=== PATIENT | female | born 1965 | race Caucasian/White ===

== ENCOUNTER → 2017-01-18 | Outpatient (CLI) | payer OTHER ==
[~2017-01-18] MED LIST: AZAT50TA17; BSP15; CEPH500C PO; LABE300T; PNT250; POTA10CA28; REVIEWED; SPIR25TA; [UNRECOGNIZED DRUG - REMARK]; [UNRECOGNIZED DRUG - REMARK]
[2017-01-18 11:22] LABS: BLOOD UREA NITROGEN 17 mg/dl (7-18); BUN/CREATININE RATIO 15.5 (10-20); CALCIUM 9.4 mg/dl (8.5-10.1); CARBON DIOXIDE 26 mmol/L (21-32); CHLORIDE 102 mmol/L (98-107); CHOLESTEROL 136 mg/dl (0-200); GLUCOSE 117 mg/dl (70-99); POTASSIUM 3.5 mmol/L (3.5-5.1); SODIUM 138 mmol/L (136-145)
[2017-01-18 11:29] LABS: ESTIMATED AVERAGE GLUCOSE 120 mg/dl; HA1C FLAG Normal (Normal)
[2017-01-18 11:32] LABS: CHOLESTEROL/HDL RATIO 3.9; HDL CHOLESTEROL 35 mg/dl; LDL CHOLESTEROL CALCULATED 69 mg/dl; TRIGLYCERIDES 159 mg/dl (0-150); VERY LOW DENSITY LIPOPROT CALC 32 mg/dl
[2017-01-18 12:02] LABS: BASO % 0.2 %; BASO ABS # 0.01 K/uL (0-0.2); COMPLETE YES; EOS % 2.5 %; HEMATOCRIT 39.9 % (37-47); IG% 0.3 %; LYMPH % 39.3 %; LYMPH ABS # 2.36 K/uL (1.2-3.4); MEAN CELL VOLUME 97.3 fL (80-100); MEAN CORPUSCULAR HEMOGLOBIN 33.9 pg (25-34); MEAN CORPUSCULAR HGB CONC 34.8 g/dl (32-36); MEAN PLATELET VOLUME 12.7 fL (7.4-10.4); NEUT % 46.7 %; PLATELET COUNT 116 K/uL (130-400); PLT ESTIMATE DECREASED
== END | disposition home or self-care (01) ==
LOC: C.LAB1850 09:48
PROVIDERS: ATTEND Internal Medicine
DX: E78.5 Hyperlipidemia, unspecified (principal); E11.9 Type 2 diabetes mellitus without complications

== ENCOUNTER → 2017-01-18 | Outpatient (CLI) | payer OTHER ==
--- NOTE | 2017-01-18 16:46 | MAMMOGRAPHY REPORT ---
BILATERAL DIGITAL SCREENING MAMMOGRAM TOMOSYNTHESIS WITH CAD: 01/18/2017 CLINICAL HISTORY: Routine screening. Patient has no complaints. TECHNIQUE: Breast tomosynthesis in addition to standard 2D mammography was performed. Current study was also evaluated with a Computer Aided Detection (CAD) system. COMPARISON: Comparison is made to exam dated: 10/21/2013 mammogram - [facility]. BREAST COMPOSITION: There are scattered areas of fibroglandular density in both breasts. FINDINGS: There is a newly visualized small cluster of calcifications seen within the left upper ou ter quadrant, for which spot magnification views are recommended for further evaluation. The remainder of both breasts are stable compared to prior exams, without suspicious masses, calcifi cations, or areas of architectural distortion noted. Scattered benign-appearing right breast calcif ications are again noted. IMPRESSION: ACR BI-RADS CATEGORY 0: INCOMPLETE EVALUATION: NEED ADDITIONAL IMAGING EVALUATION Left upper outer quadrant calcifications, for which additional imaging evaluation is recommended. T he patient will be called to schedule an appointment. Approximately 10% of breast cancers are not detected with mammography. A negative mammographic repor t should not delay biopsy if a clinically suggestive mass is present. Sri Del Toro M.D. ah/:01/18/2017 16:41:56 Carton Wrapper: Yasmin Fatima, M, [facility] letter sent: Addl Imaging 0 BI-RADS Code: ACR BI-RADS Category 0: Incomplete Evaluation: Need Additional Imaging Evaluation
== END | disposition home or self-care (01) ==
LOC: C.MAMM 08:39
PROVIDERS: ATTEND Obstetrics & Gynecology
DX: Z12.31 Encounter for screening mammogram for malignant neoplasm of breast (principal); R92.1 Mammographic calcification found on diagnostic imaging of breast

== ENCOUNTER → 2017-01-30 | Outpatient (CLI) | payer OTHER ==
--- NOTE | 2017-01-30 15:22 | MAMMOGRAPHY REPORT ---
UNILATERAL LEFT DIGITAL DIAGNOSTIC MAMMOGRAM: 01/30/2017 CLINICAL HISTORY: 51-year-old woman called back from screening mammography for a new cluster of micr ocalcifications in the 12:00 anterior left breast. Family history of breast cancer = cousins. TECHNIQUE: Spot magnification left CC and ML views were obtained. COMPARISON: Comparison is made to exams dated: 01/18/2017 mammogram and 10/21/2013 mammogram - [facility]. BREAST COMPOSITION: There are scattered areas of fibroglandular density in the left breast. FINDINGS: The spot magnification views demonstrate a 2.6 m cluster of punctate microcalcifications in the 12:00 anterior left breast, without associated asymmetry or mass. None demonstrate layering on the ML view. No other clustered calcifications are identified within the visualized left breast. These microcalcifications are new comparing to the 2013 mammogram and therefore indeterminate. De finitive characterization with tissue sampling is recommended. IMPRESSION: ACR BI-RADS CATEGORY 4B: INTERMEDIATE SUSPICION FOR MALIGNANCY Left breast stereotactic guided biopsy is recommended for a new 2.6 mm cluster of punctate microcalc ifications in the 12:00 anterior left breast. These results and recommendations were discussed with the patient at the time of the exam. She tent atively scheduled the biopsy prior to leaving the department. Approximately 10% of breast cancers are not detected with mammography. A negative mammographic repor t should not delay biopsy if a clinically suggestive mass is present. Tammie Burgos M.D. ay/:01/30/2017 09:36:28 Gas Meter Installer Helper: Natasha BARRERA)(Padma), [facility] letter sent: Abnormal 4/5 BI-RADS Code: ACR BI-RADS Category 4B: Intermediate Suspicion For Malignancy
== END | disposition home or self-care (01) ==
LOC: C.MAMM 09:05
PROVIDERS: ATTEND Obstetrics & Gynecology
DX: R92.0 Mammographic microcalcification found on diagnostic imaging of breast (principal)

== ENCOUNTER → 2017-02-16 | Outpatient (CLI) | payer OTHER ==
--- NOTE | 2017-02-16 09:25 | Discharge Instructions ---
Discharge Instructions Procedure Procedure Date: Feb 16, 2017. Reason for visit: Left Calcifications. Discharge Discharge Date: Feb 16, 2017. Discharge Diagnosis: status post breast biopsy Instructions Activity Recommendations: Additional Limitations (see below) Return to School/Work: no limitations Recommended Home Diet: No Limitations Provider Instructions: ACTIVITY RECOMMENDATIONS: * No lifting, pushing, pulling or exercising the affected side for three days. RETURN TO SCHOOL/WORK: * You may return to work/school after the procedure, but do not perform any strenuous activities for 24 to 48 hours. MEDICATIONS: * Tylenol (two 325 mg) every four to six hours if needed for mild pain (if not allergic to Tylenol). DIET: * Resume previous diet. SPECIAL CARE INSTRUCTIONS: * Keep biopsy site dry for 24 hours. May shower after 24 hours, but do not soak (bathe) incision. * May remove Tegaderm (plastic patch) tomorrow AFTER showering. * Leave the steri-strips on for one week. Allow the steri-strips to fall off by themselves. If not off after one week, you may remove them. You may place a Bandaid crosswise over the strips, if desired. * Apply ice 10 minutes on and 10 minutes off as needed. * Wear a bra at bedtime to sleep more comfortably for 2-3 days. * Your referring physician should have the results after approximately 5 to 7 business days. * Call for unusual bleeding, fever, drainage, etc or if you have any questions call during normal business hours or after hours call Dr Dle Toro, [phone]. FOLLOW UP VISIT: Follow-up with Referring Physician as scheduled. Allergies Coded Allergies: No Known Allergies (Verified Allergy, Unknown, 02/19/05) Magdi Akhtar Recommendations: Call your doctor if: * Temperature above 101 degrees * Pain not relieved by pain medicine ordered * There is increased drainage or redness from any incision * You have any unanswered questions or concerns. Your Doctors Instructions noted above were prepared by provider Sri Del Toro. Patient Signature Section: Patient Instructions Signature Page Sri Brody Patient (or Guardian) Signature/Date: I have read and understand the instructions given to me by my caregivers. Caregiver/RN/Doctor Signature/Date: The above-named patient and/or guardian has received patient instructions on this date. + Original Patient Signature Page (only) stays with chart. Please make copy for patient.
--- NOTE | 2017-02-16 13:32 | MAMMOGRAPHY REPORT ---
STEREOTACTIC GUIDED BIOPSY LEFT BREAST: 02/16/2017 CLINICAL HISTORY: Indeterminate calcifications in the left 12:00 breast. PATIENT CONSENT: The procedure, risks, benefits, and alternatives of stereotactic biopsy with clip p lacement were discussed with the patient, and verbal and written consent was obtained. A timeout wa s performed immediately prior to the procedure. PROCEDURE DESCRIPTION: With stereotactic guidance, aseptic technique, and lidocaine as a local anest hetic (1% lidocaine to anesthetize the skin and 1% lidocaine with epinephrine to anesthetize the raymundo per tissues), the area of concern was sampled multiple times with a 9-gauge vacuum-assisted biopsy n eedle ([employer]). The path of approach was craniocaudal. The specimen radiograph demonstrates c alcifications to be present in the samples. A metallic marker clip was placed at the biopsy site. This was confirmed on postprocedure mammograms. Direct pressure was applied at the biopsy site and hemostasis was readily achieved. The patient tolerated the procedure without complication. She was given wound care instructions. COMPARISON: Comparison is made to exams dated: 01/18/2017 mammogram, 10/21/2013 mammogram, and 017 mammogram - [facility]. IMPRESSION: STEREOTACTIC GUIDED BIOPSY Stereotactic biopsy of indeterminate calcifications in the left 12:00 breast, with clip placement. The patient will receive pathology results from her referring provider. Sri Del Toro M.D. /:02/16/2017 09:29:13 Lombardi Developer: Natasha ESPINOSA(R)(M), [facility]
--- NOTE | 2017-02-16 13:33 | MAMMOGRAPHY REPORT ---
UNILATERAL LEFT DIGITAL DIAGNOSTIC MAMMOGRAM: 02/16/2017 CLINICAL HISTORY: Status post left breast stereotactic biopsy. TECHNIQUE: Postprocedural left CC and ML views were obtained. COMPARISON: Comparison is made to exams dated: 10/21/2013 mammogram, 01/18/2017 mammogram, 02/16/2017 stereotactic biopsy, and 01/30/2017 mammogram - [facility]. BREAST COMPOSITION: There are scattered areas of fibroglandular density in the left breast. FINDINGS: A new biopsy marker clip is seen in the left breast status post stereotactic biopsy of le ft 12:00 breast calcifications. No significant postbiopsy hematoma is seen. IMPRESSION: POST PROCEDURE IMAGING FOR MARKER PLACEMENT New biopsy marker clip status post stereotactic biopsy of left breast calcifications. Pathology res ults are pending. Approximately 10% of breast cancers are not detected with mammography. A negative mammographic repor t should not delay biopsy if a clinically suggestive mass is present. Sri Del Toro M.D. ah/:02/16/2017 09:34:03 Systems Trainer: Natasha ESPINOSA(Yasmin)(M), [facility] BI-RADS Code: Post Procedure Imaging For Marker Placement
== END | disposition home or self-care (01) ==
LOC: C.MAMM 08:38
PROVIDERS: ATTEND Obstetrics & Gynecology
DX: R92.1 Mammographic calcification found on diagnostic imaging of breast (principal)

== ENCOUNTER → 2017-08-30 | Outpatient (CLI) | payer OTHER ==
[2017-08-30 17:50] LABS: BLOOD UREA NITROGEN 17 mg/dl (7-18)
== END | disposition home or self-care (01) ==
LOC: C.LABPBG 13:51
PROVIDERS: ATTEND Internal Medicine Gastroenterology
DX: K50.80 Crohn's disease of both small and large intestine without complications (principal)

== ENCOUNTER → 2017-09-03 | Outpatient (CLI) | payer OTHER ==
[~2017-09-03] MED LIST changes: +OPTIRAY 320 IV PRN
--- NOTE | 2017-09-03 14:27 | DIAGNOSTIC IMAGING REPORT ---
CT ENTEROGRAPHY CLINICAL HISTORY: Mid abdominal pain. Crohn's disease. COMPARISON STUDY: Abdominal ultrasound dated 11/02/2014. TECHNIQUE: The small bowel was prepped by having the patient drank negative enteric contrast. Following the IV administration of 94 cc of Optiray 320, CT enterography of the abdomen and pelvis is performed from the lung bases to the proximal femora. Images are reviewed in the axial, sagittal, and coronal planes. IV contrast was administered without complication. A dose lowering technique was utilized adhering to the principles of ALARA. CT DOSE: 890.08 mGy.cm FINDINGS: Lung bases: The heart is normal in size and without pericardial effusion. The lung bases are clear. Liver: The contrast-enhanced liver is top normal in size and demonstrates diffusely diminished attenuation consistent with hepatic steatosis. There is no intrahepatic biliary ductal dilatation. The hepatic veins and portal veins are patent. Gallbladder: Unremarkable. Spleen: The spleen is markedly enlarged, measuring 19.8 cm in length. Pancreas: Unremarkable. Adrenal glands: Unremarkable. Kidneys: The contrast enhanced kidneys are normal in size and without hydronephrosis. The kidneys enhance symmetrically. Abdominal vasculature: The abdominal aorta is normal in course and caliber noting mild to moderate atherosclerotic calcification. Bowel: There are postoperative changes from right ileal resection with ileocolic anastomosis. No bowel obstruction is seen. No hyperemic or thick-walled small bowel loops are identified to suggest active Crohn's disease. There is no evidence of stricture or fistula. No abscess is identified. The appendix is not identified and may be surgically absent Peritoneum: There is no intraperitoneal free air or abdominal ascites. There are at least 3 fat-containing ventral hernias. A midline surgical scar is noted. Lymphadenopathy: None. Pelvic viscera: The bladder is decompressed and grossly unremarkable. The uterus adnexa are normal as visualized. Skeletal structures: No lytic or blastic lesions are seen. Mild lumbosacral spondylosis is observed. Sclerotic change is noted in the sacroiliac joints. IMPRESSION: 1. There are postoperative changes from distal ileal resection with ileocolic anastomosis. No bowel obstruction is seen. 2. There is no CT evidence of active Crohn's disease. 3. Hepatic steatosis. 4. Marked splenomegaly. 5. Additional findings as above. Electronically signed by: Anselmo Ga M.D. 09/03/2017 2:25 PM Dictated Date/Time: 09/03/2017 2:18 PM
== END | disposition home or self-care (01) ==
LOC: C.CTS 12:17
PROVIDERS: ATTEND Internal Medicine Gastroenterology
DX: K50.80 Crohn's disease of both small and large intestine without complications (principal); Z98.0 Intestinal bypass and anastomosis status; K76.0 Fatty (change of) liver, not elsewhere classified; R16.1 Splenomegaly, not elsewhere classified

== ENCOUNTER → 2017-11-22 | Outpatient (CLI) | payer OTHER ==
[~2017-11-22] MED LIST changes: -OPTIRAY 320 IV PRN
[2017-11-22 12:29] LABS: ESTIMATED AVERAGE GLUCOSE 117 mg/dl; HA1C FLAG Normal (Normal)
[2017-11-22 12:30] LABS: BLOOD UREA NITROGEN 19 mg/dl (7-18); BUN/CREATININE RATIO 17.9 (10-20); CARBON DIOXIDE 29 mmol/L (21-32); CHLORIDE 101 mmol/L (98-107); CHOLESTEROL 182 mg/dl (0-200); CREATININE 1.07 mg/dl (0.60-1.20); GLUCOSE 117 mg/dl (70-99); POTASSIUM 3.5 mmol/L (3.5-5.1); SODIUM 138 mmol/L (136-145); TRIGLYCERIDES 246 mg/dl (0-150); VERY LOW DENSITY LIPOPROT CALC 49 mg/dl
[2017-11-22 12:36] LABS: HEMATOCRIT 44.5 % (37-47); MEAN CORPUSCULAR HEMOGLOBIN 34.6 pg (25-34); MEAN CORPUSCULAR HGB CONC 34.6 g/dl (32-36); RED BLOOD COUNT 4.45 M/uL (4.2-5.4); WHITE BLOOD COUNT 5.67 K/uL (4.8-10.8)
[2017-11-22 12:41] LABS: CHOLESTEROL/HDL RATIO 4.9; HDL CHOLESTEROL 37 mg/dl; LDL CHOLESTEROL CALCULATED 96 mg/dl
[2017-11-22 12:48] LABS: MEAN PLATELET VOLUME 12.8 fL (7.4-10.4); PLATELET COUNT 106 K/uL (130-400)
[2017-11-22 12:51] LABS: BASO ABS # 0.05 K/uL (0-0.2); BASOPHIL % 0.9 %; COMPLETE YES; EOSINOPHIL % 2.6 %; LYMPH ABS # 1.59 K/uL (1.2-3.4); LYMPHOCYTE % 28.1 %; NEUTROPHILS % 48.2 %; PLT ESTIMATE DECREASED; VARIANT LYM ABS # 0.84 K/uL; VARIANT LYMPHOCYTE % 14.9 %
== END | disposition home or self-care (01) ==
LOC: C.LABPBG 09:02
PROVIDERS: ATTEND Physician Assistant
DX: I10 Essential (primary) hypertension (principal); E11.9 Type 2 diabetes mellitus without complications

== ENCOUNTER → 2018-03-19 | Outpatient (CLI) | payer OTHER ==
--- NOTE | 2018-03-19 09:40 | DIAGNOSTIC IMAGING REPORT ---
ULTRASOUND OF THE SPLEEN CLINICAL HISTORY: Splenomegaly. COMPARISON STUDY: Abdominal CT dated 09/03/2017. FINDINGS: Real-time grayscale sonography of the spleen is performed. The spleen is enlarged, measuring 18.1 cm in length. The spleen is homogeneous in echotexture, with no focal mass lesion identified. There is no perisplenic fluid. IMPRESSION: Splenomegaly, similar in appearance to the 09/03/2017 examination. Electronically signed by: Anselmo Ga M.D. 03/19/2018 9:39 AM Dictated Date/Time: 03/19/2018 9:37 AM
== END | disposition home or self-care (01) ==
LOC: C.ULTRBC 09:09
PROVIDERS: ATTEND Internal Medicine
DX: R16.1 Splenomegaly, not elsewhere classified (principal)